=== PATIENT | male | born 1990 | race Caucasian/White ===

== ENCOUNTER 2016-03-28 15:02 | Emergency (ER) | payer SELFPAY ==
[~2016-03-28] VITALS: Ht 185.4 cm; Wt 93.0 kg
[2016-03-28 15:16] VITALS: BP 120/64
[2016-03-28] MEDS ORDERED: ONDANSETRON 4 MG TAB.RAPDIS ONE (15:36)
[2016-03-28] MEDS ORDERED: ONDANSETRON 4 MG TAB.RAPDIS SL ONE (16:00)
== END 2016-03-28 17:00 | disposition home or self-care (01) ==
LOC: ER 15:04
DX: J11.1 Influenza due to unidentified influenza virus with other respiratory manifestations (principal); R11.0 Nausea; F17.200 Nicotine dependence, unspecified, uncomplicated
CPT/HCPCS: 71010-TC; A4606; Q0162; Z7610